=== PATIENT | male | born 1940 | race Caucasian/White ===

== ENCOUNTER → 2017-02-01 | Outpatient (CLI) | payer OTHER ==
[2017-02-01 11:16] LABS: BASOPHILS # (AUTO) 0.05 10*3/UL; BASOPHILS % (AUTO) 0.7 % (0-1); EOSINOPHILS # (AUTO) 0.28 10*3/UL; EOSINOPHILS % (AUTO) 3.8 % (0-8); HEMATOCRIT 49.2 % (42.0-52.0); HEMOGLOBIN 16.7 g/dL (14.0-18.0); MEAN CORPUSCULAR HGB CONC 33.9 g/dL (33-37); MEAN CORPUSCULAR VOLUME 91.4 FL (80-90); MEAN PLATELET VOLUME 10.3 FL (7.4-12.2); MONOCYTES # (AUTO) 0.73 10*3/UL (0.3-0.8); NEUTROPHILS # (AUTO) 4.72 10*3/UL; NEUTROPHILS % (AUTO) 64.7 % (50-80); RED BLOOD COUNT 5.38 10^6/uL (4.70-6.10)
[2017-02-01 11:27] LABS: PLATELET MORPHOLOGY COMMENT NORMAL MORPHOLOGY (NORM); RBC MORPHOLOGY COMMENT NORMAL MORPHOLOGY (NORM); WBC MORPHOLOGY COMMENT NORMAL MORPHOLOGY (NORM)
[2017-02-01 11:45] LABS: CALCIUM 9.4 mg/dL (8.7-10.7); CHOL/HDL RATIO 5.37 RATIO (0-4.0); LDL CHOLESTEROL,CALCULATED 124.8 mg/dL
--- NOTE | 2017-02-01 16:18 | DI ---
CT CTA ABD/AORTA ILIOFEM B/LE,02/01/2017 1:27 PM: Clinical History: Cyanotic toe. Previous Exam: None at this facility. Findings: Multiple helically acquired CT images are obtained through the abdomen and lower extremities followin g an angiogram protocol. 120 cc of Isovue 300 were administered IV. There is mild diffuse fatty infiltration of the liver. The spleen is unremarkable. Patient is status post cholecystectomy. The adrenals and kidneys are unremarkable. The pancreas is also unremarkable. The lung bases are clear. Diffuse degenerative changes of the lumbar spine are seen. The aorta demonstrates some mild tortuosity. There is diffuse peripheral vascular disease. The celiac axis, superior mesenteric artery and inferior mesenteric arteries are unremarkable. There is a very small infrarenal abdominal aortic aneurysm measuring 3.3 cm in AP dimension. The common iliac arteries are unremarkable. The external iliac arteries and common iliac arteries are normal. The profundus is normal. The superficial femoral artery is also normal. The popliteal arteries are no rmal bilaterally. There is normal three-vessel runoff to the foot bilaterally. There are some degener ative changes of the foot. Impression: 1. 3.3 cm infrarenal abdominal aortic aneurysm. 2. No hemodynamically significant stenosis of the lower extremities from the common iliac arteries to the level of the feet.
== END ==
LOC: MOB LAB 10:42
PROVIDERS: ATTEND Internal Medicine
DX: E78.5 Hyperlipidemia, unspecified (principal); R23.0 Cyanosis; I10 Essential (primary) hypertension; Z86.79 Personal history of other diseases of the circulatory system; Z12.5 Encounter for screening for malignant neoplasm of prostate
CPT/HCPCS: 36415; 75635; 80053; 80061; 82550; 84443; 85025; G0103

== ENCOUNTER → 2017-02-01 | Outpatient (CLI) | payer OTHER ==
--- NOTE | 2017-02-09 09:46 | HOLTER ---
[facility] [place] Interpretive Statements Twenty four hour holter done in followup of atrial fibrillation. No symptoms recorded. There were 35369 beats recorded with [id number] being normal. There were 496 PACs with 481 singlets, 3 pairs and 3 3beat runs to maximum rate of 135. The minimum heart rate was 50 with maximum sinus rate of 88 and average rate of 65. No ectopic ventricular activity was seen and no atrial fibrillation. No diagnostic ST-T wave changes were present. Imp: Essentially normal study with no recurrent atrial fibrillation and rare asymptomatic PACs. Electronically Signed On 02-09-17 16:19:50 MDT by Ronnei Moscoso [id number]
== END ==
LOC: EKG 10:33
PROVIDERS: ATTEND Internal Medicine
DX: I10 Essential (primary) hypertension (principal); E78.5 Hyperlipidemia, unspecified; R23.0 Cyanosis; Z86.79 Personal history of other diseases of the circulatory system
CPT/HCPCS: 93225; 93226; 93227; 99215